=== PATIENT | female | born 1945 | race Caucasian/White ===

== ENCOUNTER 2018-04-01 09:15 | Day surgery (SDC) | payer MEDICARE ==
[2018-04-01] MEDS: PROPARACAINE 0.5% OPHTH SOL 15ML OS (09:45)
[2018-04-01] MEDS: PHENYLEPHRINE 2.5% OPHTH SOL 2ML OS (09:45)
[2018-04-01] MEDS: TROPICAMIDE 1% OPHTH SOLN 2ML OS (09:50)
[2018-04-01] MEDS: OFLOXACIN 0.3 % (OCUFLOX) OPTH SOL 5ML OS (10:05)
[2018-04-01] MEDS: LIDOCAINE 0.75%/EPINEPHRINE 0.025% IN BSS 1ML SYR INTRACAMERAL (OR ONLY) As Ordered (10:55)
[2018-04-01] MEDS: BALANCED SALT IRRIGATION SOLUTION 500ML BAG (FOR OR EYE MACHINE) As Ordered (10:57)
[2018-04-01] MEDS: POVIDONE-IODINE 5% OPHTH PREP SOL 30ML As Ordered (11:01)
[2018-04-01] MEDS: DUOVISC (0.50ML VISCOAT/0.55ML PROVISC) OPHTH KIT As Ordered (11:01)
[2018-04-01] MEDS ORDERED: ONDANSETRON 4MG/2ML VIAL (J2405) As Ordered (11:03)
[2018-04-01] MEDS ORDERED: MIDAZOLAM INJ 2 MG/2 ML VIAL (J2250) As Ordered (11:03)
[2018-04-01] MEDS ORDERED: fentaNYL 100 MCG/2 ML INJECTION (J3010) As Ordered (11:03)
== END 2018-04-01 12:05 | disposition home or self-care (01) ==
LOC: M SDC 09:15
DX: H25.12 Age-related nuclear cataract, left eye (principal); E78.5 Hyperlipidemia, unspecified; L40.50 Arthropathic psoriasis, unspecified; I25.2 Old myocardial infarction; R01.1 Cardiac murmur, unspecified; E04.1 Nontoxic single thyroid nodule; K21.9 Gastro-esophageal reflux disease without esophagitis; F41.9 Anxiety disorder, unspecified; J44.9 Chronic obstructive pulmonary disease, unspecified; R06.02 Shortness of breath; Z88.0 Allergy status to penicillin; Z91.048 Other nonmedicinal substance allergy status; Z99.81 Dependence on supplemental oxygen; Z87.891 Personal history of nicotine dependence; Z90.710 Acquired absence of both cervix and uterus
CPT/HCPCS: 66984

== ENCOUNTER 2018-04-15 06:07 | Day surgery (SDC) | payer MEDICARE ==
[2018-04-15] MEDS ORDERED: fentaNYL 100 MCG/2 ML INJECTION (J3010) As Ordered (07:09)
[2018-04-15] MEDS ORDERED: MIDAZOLAM INJ 2 MG/2 ML VIAL (J2250) As Ordered (07:10)
[2018-04-15] MEDS: OFLOXACIN 0.3 % (OCUFLOX) OPTH SOL 5ML OD (07:15)
[2018-04-15] MEDS: PROPARACAINE 0.5% OPHTH SOL 15ML OD (07:15)
[2018-04-15] MEDS: TROPICAMIDE 1% OPHTH SOLN 2ML OD (07:15)
[2018-04-15] MEDS: PHENYLEPHRINE 2.5% OPHTH SOL 2ML OD (07:15)
[2018-04-15] MEDS: LIDOCAINE 0.75%/EPINEPHRINE 0.025% IN BSS 1ML SYR INTRACAMERAL (OR ONLY) As Ordered (08:04)
[2018-04-15] MEDS: CEFUROXIME 1MG/0.1ML INTRACAMERAL INJ As Ordered (08:09)
[2018-04-15] MEDS: BALANCED SALT IRRIGATION SOLUTION 500ML BAG (FOR OR EYE MACHINE) As Ordered (08:09)
[2018-04-15] MEDS: DUOVISC (0.50ML VISCOAT/0.55ML PROVISC) OPHTH KIT As Ordered (08:13)
[2018-04-15] MEDS: POVIDONE-IODINE 5% OPHTH PREP SOL 30ML As Ordered (08:29)
== END 2018-04-15 09:05 | disposition home or self-care (01) ==
LOC: M SDC 06:07
DX: H25.11 Age-related nuclear cataract, right eye (principal); E78.5 Hyperlipidemia, unspecified; I25.2 Old myocardial infarction; R01.1 Cardiac murmur, unspecified; E04.1 Nontoxic single thyroid nodule; L40.50 Arthropathic psoriasis, unspecified; L40.9 Psoriasis, unspecified; F41.9 Anxiety disorder, unspecified; J44.9 Chronic obstructive pulmonary disease, unspecified; R06.02 Shortness of breath; Z88.0 Allergy status to penicillin; Z91.048 Other nonmedicinal substance allergy status; Z79.899 Other long term (current) drug therapy; Z90.710 Acquired absence of both cervix and uterus
CPT/HCPCS: 66984

== ENCOUNTER 2018-08-11 15:17 | Emergency (ER) | payer MEDICARE ==
[2018-08-11] MEDS: NS 500 ML IV (15:30)
[2018-08-11 15:56] LABS: BEDSIDE GLUCOSE 97 MG/DL (83-110)
[2018-08-11 16:30] LABS: VENOUS BASE EXCESS 7.1 (-2.0-2.0); VENOUS HCO3 34.9 MEQ/L (23.0-27.0); VENOUS O2 SATURATION 72.1 % (60.0-80.0); VENOUS PARTIAL PRESSURE CO2 64.1 mmHg (38.0-50.0); VENOUS PARTIAL PRESSURE O2 41.3 mmHg (30.0-50.0); VENOUS PH 7.354 UNITS (7.330-7.430); VENOUS STANDARD HCO3 30.3 MEQ/L; VENOUS TOTAL CO2 36.9 MEQ/L (24.0-28.0)
[2018-08-11 16:36] LABS: BASO # 0.1 10^3/uL (0.0-0.2); BASO % 0.9 % (0.0-1.0); EOS # 0.2 10^3/uL (0.0-0.50); EOS % 2.6 % (0.0-3.0); HEMATOCRIT 38.6 % (36.0-47.0); HEMOGLOBIN 12.8 g/dl (12.0-15.5); IMMATURE GRANULOCYTE % 0.4 % (0-3.0); LYMPH # 1.6 10^3/uL (1.5-4.5); LYMPH % 20.4 % (24.0-44.0); MEAN CORPUSCULAR HEMOGLOBIN 33.2 pg (27.0-33.0); MEAN CORPUSCULAR HGB CONC 33.2 g/dl (32.0-36.5); MONO # 0.7 10^3/uL (0.0-0.8); MONO % 9.1 % (0.0-5.0); NEUTROPHILS # 5.2 10^3/uL (1.8-7.7); NEUTROPHILS % 66.6 % (36.0-66.0); PLATELET COUNT, AUTOMATED 300 10^3/uL (150-450); RED BLOOD COUNT 3.86 10^6/uL (4.00-5.40); RED CELL DISTRIBUTION WIDTH 12.9 % (11.5-14.5); WHITE BLOOD COUNT 7.8 10^3/uL (4.0-10.0)
[2018-08-11 17:08] LABS: AMMONIA < 10 uMOL/L (<32)
[2018-08-11 17:16] LABS: OSMOLALITY SERUM 375 MOSM/KG (280-301)
[2018-08-11 17:32] LABS: LACTIC ACID SEPSIS PROTOCOL 2.5 MMOL/L (0.4-2.0)
[2018-08-11 17:35] LABS: ACETAMINOPHEN LEVEL < 2.0 UG/ML (10.0-30.0); ALBUMIN 3.5 GM/DL (3.2-5.2); ALBUMIN/GLOBULIN RATIO 0.92 (1.00-1.93); ALKALINE PHOSPHATASE 73 U/L (45-117); ALT/SGPT 36 U/L (12-78); ANION GAP 8 MEQ/L (8-16); AST/SGOT 32 U/L (7-37); BILIRUBIN,DIRECT < 0.1 MG/DL (0.0-0.2); BILIRUBIN,TOTAL 0.1 MG/DL (0.2-1.0); BLOOD UREA NITROGEN 14 MG/DL (7-18); CALCIUM LEVEL 8.4 MG/DL (8.8-10.2); CARBON DIOXIDE LEVEL 33 MEQ/L (21-32); CHLORIDE LEVEL 102 MEQ/L (98-107); CPK CREATINE PHOSPHOKINASE 185 U/L (26-192); CREATININE FOR GFR 0.65 MG/DL (0.55-1.30); ETHYL ALCOHOL (ETHANOL) 0.299 % (0.000-0.010); GLOMERULAR FILTRATION RATE > 60.0 (>39); GLUCOSE, FASTING 82 MG/DL (70-100); MB/CK RELATIVE INDEX 3.24 (< OR =4); SALICYLATE LEVEL < 1.7 MG/DL (5.0-30.0); SODIUM LEVEL 143 MEQ/L (136-145); THYROID STIMULATING HORMONE 0.302 uIU/ML (0.358-3.740); TOTAL PROTEIN 7.3 GM/DL (6.4-8.2); TROPONIN I < 0.02 NG/ML (< 0.10)
[2018-08-11 18:42] LABS: FREE T4 1.01 NG/DL (0.76-1.46)
== END 2018-08-11 19:14 | disposition home or self-care (01) ==
LOC: M ED 15:17
DX: G93.41 Metabolic encephalopathy (principal); F10.229 Alcohol dependence with intoxication, unspecified; Y90.1 Blood alcohol level of 20-39 mg/100 ml; I45.10 Unspecified right bundle-branch block; J44.9 Chronic obstructive pulmonary disease, unspecified; I73.9 Peripheral vascular disease, unspecified; Z99.81 Dependence on supplemental oxygen; Z79.899 Other long term (current) drug therapy; Z88.0 Allergy status to penicillin; Z88.8 Allergy status to other drugs, medicaments and biological substances; Z87.891 Personal history of nicotine dependence
CPT/HCPCS: 71045

== ENCOUNTER → 2020-04-05 | Outpatient (REF) | payer MEDICARE, OTHER ==
[~2020-04-05] MED LIST: ADVA115A INH; CALCIUM W/D PO; DULC5TAB PO; FURO40TA2 PO; HALOBETASOL TOP; KETO10TAB PO; LIPI20TA PO; LORA-243 PO; MAGN400C2 PO; NIASPAN ER PO; OMEGA 3 PO; PRED20TAB PO; RANI-397 PO; SERT50TA29 PO; SING10TA31 OR; TRILIPIX PO; TYLE325T5 PO; TYLENOL ARTHIRITIS PO; VICO5TAB OR; VITA400C OR; VITA500T OR; [UNRECOGNIZED DRUG - OTHER] INH; [UNRECOGNIZED DRUG - OTHER] INH; [UNRECOGNIZED DRUG - OTHER] PO; [UNRECOGNIZED DRUG - OTHER] TOP; [UNRECOGNIZED DRUG - OTHER] TOP; aquaphor TOP; astepro
== END ==
LOC: M LAB REF 16:26
PROVIDERS: ATTEND Internal Medicine
DX: R25.1 Tremor, unspecified (principal)

== ENCOUNTER → 2020-11-08 | Outpatient (REF) | payer MEDICARE, OTHER | LOC: M LAB REF 16:15 | PROVIDERS: ATTEND Internal Medicine | DX: M79.671 Pain in right foot (principal) ==

== ENCOUNTER → 2021-08-29 | Outpatient (CLI) | payer MEDICARE ==
--- NOTE | 2021-08-29 12:51 | REP ---
INDICATION: RT LEG SWELLING COMPARISON: None. TECHNIQUE: Nazario scale and color Doppler evaluation using linear high frequency transducer. FINDINGS: Ultrasound examination of the right lower extremity deep venous structures from the common femoral vein through the popliteal vein demonstrates normal compressibility, flow and wave patterns in response to respiration and augmentation. Evaluation of the calf veins demonstrates normal compressibility to the posterior tibial and peroneal veins. There is no evidence for deep venous thrombosis. Contralateral CFV is patent and normal. IMPRESSION: No evidence for deep venous thrombosis. <Electronically signed by Maxwell Elliott > 08/29/21 0002
== END ==
LOC: M RAD 12:09
PROVIDERS: ATTEND Internal Medicine
DX: R22.41 Localized swelling, mass and lump, right lower limb (principal)

== ENCOUNTER → 2021-10-10 | Outpatient (CLI) | payer MEDICARE | LOC: M RAD 12:47 | PROVIDERS: ATTEND Surgery | DX: I87.2 Venous insufficiency (chronic) (peripheral) (principal) ==

== ENCOUNTER 2021-10-19 09:58 | Inpatient (IN) | payer MEDICARE ==
[~2021-10-19] VITALS: Ht 162.6 cm; Wt 69.6 kg
[2021-10-19 10:35] LABS: VENOUS BASE EXCESS 11.3 (-2.0-2.0); VENOUS HCO3 39.5 MEQ/L (23.0-27.0); VENOUS PARTIAL PRESSURE CO2 69.3 mmHg (38.0-50.0); VENOUS PH 7.374 UNITS (7.330-7.430); VENOUS STANDARD HCO3 33.8 MEQ/L; VENOUS TOTAL CO2 41.7 MEQ/L (24.0-28.0)
[2021-10-19 10:39] LABS: BASO # 0.1 10^3/uL (0.0-0.2); BASO % 0.5 % (0.0-1.0); EOS # 0.2 10^3/uL (0.0-0.5); EOS % 1.3 % (0.0-3.0); HEMATOCRIT 38.2 % (36.0-47.0); HEMOGLOBIN 12.3 g/dl (12.0-15.5); LYMPH % 8.2 % (24.0-44.0); MEAN CORPUSCULAR HEMOGLOBIN 32.3 pg (27.0-33.0); MEAN CORPUSCULAR HGB CONC 32.2 g/dl (32.0-36.5); MEAN CORPUSCULAR VOLUME 100.3 fl (80.0-96.0); MONO # 0.9 10^3/uL (0.0-0.8); MONO % 6.8 % (2.0-8.0); NEUTROPHILS # 10.5 10^3/uL (1.5-8.5); NEUTROPHILS % 82.8 % (36.0-66.0); PLATELET COUNT, AUTOMATED 226 10^3/uL (150-450); RED BLOOD COUNT 3.81 10^6/uL (4.00-5.40); WHITE BLOOD COUNT 12.7 10^3/uL (4.0-10.0)
[2021-10-19] MEDS: METOPROLOL 5 MG/5 ML VIAL IV SCH ×3 (11:39→12:06)
[2021-10-19 11:48] LABS: ALBUMIN 3.7 GM/DL (3.2-5.2); ALT/SGPT 19 U/L (12-78); BILIRUBIN,DIRECT 0.2 MG/DL (0.0-0.2); BILIRUBIN,TOTAL 0.7 MG/DL (0.2-1.0); BLOOD UREA NITROGEN 20 MG/DL (7-18); CARBON DIOXIDE LEVEL 37 MEQ/L (21-32); CHLORIDE LEVEL 93 MEQ/L (98-107); CREATININE FOR GFR 0.83 MG/DL (0.55-1.30); GLOMERULAR FILTRATION RATE > 60.0 (>39); GLUCOSE, FASTING 97 MG/DL (70-100); MAGNESIUM LEVEL 2.1 MG/DL (1.8-2.4); NT-PRO BNP 2386 PG/ML (<450); POTASSIUM SERUM 3.6 MEQ/L (3.5-5.1); SODIUM LEVEL 139 MEQ/L (136-145); THYROID STIMULATING HORMONE 0.441 uIU/ML (0.358-3.740); TOTAL PROTEIN 7.3 GM/DL (6.4-8.2)
[2021-10-19] MEDS: MIDODRINE 5 MG TAB PO SCH ×2 (12:00→15:25)
[2021-10-19] MEDS ORDERED: METOPROLOL TART 25 MG TABLET PO ONE ×2 (12:05→15:15)
[2021-10-19] MEDS ORDERED: ACETAMINOPHEN 500 MG TAB PO ONE (12:05)
[2021-10-19] MEDS ORDERED: NS 1,000 ML IV SCH (12:20)
[2021-10-19] MEDS ORDERED: ALBU8.5H INH (12:48)
[2021-10-19] MEDS ORDERED: MAGN400T35 PO (12:49)
[2021-10-19] MEDS ORDERED: ADVA115A INH (12:49)
[2021-10-19] MEDS ORDERED: ATOR40TA75 PO (12:49)
[2021-10-19] MEDS ORDERED: LORA-622 PO (12:49)
[2021-10-19] MEDS ORDERED: CALC600T61 PO (12:49)
[2021-10-19] MEDS ORDERED: ASCO500T PO (12:49)
[2021-10-19] MEDS ORDERED: TORS20TA2 PO (12:49)
[2021-10-19] MEDS ORDERED: OMEG12004 PO (12:49)
[2021-10-19] MEDS ORDERED: VITMTA PO (12:49)
[2021-10-19 12:50] LABS: C REACTIVE PROTEIN QUANTITATIV 3.14 MG/DL (0.00-0.30); FERRITIN 282 NG/ML (8-252); INR 0.97; LDH LACTATE DEHYDROGENASE 177 U/L (84-246); PROTHROMBIN TIME 13.3 SECONDS (12.7-14.5)
[2021-10-19 12:51] LABS: PARTIAL THROMBOPLASTIN TIME 26.5 SECONDS (25.9-37.0)
[2021-10-19] MEDS ORDERED: LEVALBUTEROL 1.25 MG/0.5 ML CONCENTRATE NEB INH PRN (12:55)
[2021-10-19] MEDS ORDERED: CALC-234 PO (13:08)
[2021-10-19] MEDS ORDERED: HOME MED LIST COMPLETE! XX SCH (13:10)
[2021-10-19 13:25] LABS: ETHYL ALCOHOL (ETHANOL) < 0.003 % (0.000-0.010)
[2021-10-19 14:45] VITALS: BP 93/68
[2021-10-19] MEDS: ASCORBIC ACID 500 MG TAB PO SCH (15:25)
[2021-10-19] MEDS: methylPREDNISolone 125MG 2ML VIAL IV SCH ×2 (15:26→19:58)
[2021-10-19] MEDS: DIGOXIN INJ 0.5 MG/2 ML AMP (J1160) IV SCH ×2 (15:32→19:58)
[2021-10-19 16:00] VITALS: BP 92/65
[2021-10-19] MEDS ORDERED: NS 500 ML IV ONE ×3 (16:00→18:30)
[2021-10-19 16:25] VITALS: BP 91/67
[2021-10-19] MEDS ORDERED: DIGOXIN INJ 0.5 MG/2 ML AMP (J1160) IV STA (16:32)
[2021-10-19 17:31] VITALS: BP 112/80
[2021-10-19] MEDS: METOPROLOL TART 25 MG TABLET PO SCH ×4 (18:00→23:32)
[2021-10-19 18:05] VITALS: BP 98/66
[2021-10-19] MEDS: DOXYCYCLINE HYCLATE 100MG TABLET PO SCH (18:17)
[2021-10-19] MEDS: LEVALBUTEROL 1.25 MG/0.5 ML CONCENTRATE NEB INH SCH ×2 (18:27→19:40)
[2021-10-19 18:29] LABS: CK-MB VALUE MASS < 1.0 NG/ML (<3.6); CPK CREATINE PHOSPHOKINASE 37 U/L (26-192)
[2021-10-19] MEDS ORDERED: FLECAINIDE 50MG TABLET PO ONE (19:00)
[2021-10-19] MEDS: ADVAIR HFA 115/21MCG INHALER INH SCH (19:45)
[2021-10-19] MEDS: ATORVASTATIN 20 MG TAB PO SCH (19:57)
[2021-10-19] MEDS: APIXABAN 5 MG TAB (ELIQUIS) PO SCH ×2 (19:57→20:02)
[2021-10-19] MEDS: MAGNESIUM OXIDE 400MG TAB (MAG-OX) PO SCH (19:57)
[2021-10-19 20:11] VITALS: BP 98/68
[2021-10-19] MEDS ORDERED: FLECAINIDE 50MG TABLET PO SCH (21:00)
[2021-10-20] VITALS (8 sets, daily range): BP systolic 91–131; BP diastolic 61–81; O2SAT 96
[2021-10-20 00:57] LABS: CK-MB VALUE MASS < 1.0 NG/ML (<3.6); CPK CREATINE PHOSPHOKINASE 40 U/L (26-192)
[2021-10-20] MEDS: DIGOXIN INJ 0.5 MG/2 ML AMP (J1160) IV SCH ×3 (01:29→20:51)
[2021-10-20] MEDS: methylPREDNISolone 125MG 2ML VIAL IV SCH ×2 (02:37→08:05)
[2021-10-20 03:48] LABS: BASO % 0.1 % (0.0-1.0); HEMATOCRIT 32.4 % (36.0-47.0); HEMOGLOBIN 10.5 g/dl (12.0-15.5); LYMPH # 0.5 10^3/uL (1.5-5.0); LYMPH % 4.4 % (24.0-44.0); MEAN CORPUSCULAR HEMOGLOBIN 32.2 pg (27.0-33.0); MEAN CORPUSCULAR HGB CONC 32.4 g/dl (32.0-36.5); MEAN CORPUSCULAR VOLUME 99.4 fl (80.0-96.0); MONO # 0.5 10^3/uL (0.0-0.8); MONO % 4.5 % (2.0-8.0); NEUTROPHILS # 10.1 10^3/uL (1.5-8.5); NEUTROPHILS % 90.5 % (36.0-66.0); PLATELET COUNT, AUTOMATED 196 10^3/uL (150-450); RED BLOOD COUNT 3.26 10^6/uL (4.00-5.40); WHITE BLOOD COUNT 11.2 10^3/uL (4.0-10.0)
[2021-10-20] MEDS: LEVALBUTEROL 1.25 MG/0.5 ML CONCENTRATE NEB INH SCH ×7 (04:00→23:16)
[2021-10-20 04:35] LABS: BLOOD UREA NITROGEN 24 MG/DL (7-18); CALCIUM LEVEL 8.4 MG/DL (8.8-10.2); CARBON DIOXIDE LEVEL 31 MEQ/L (21-32); CHLORIDE LEVEL 98 MEQ/L (98-107); CREATININE FOR GFR 0.91 MG/DL (0.55-1.30); DIGOXIN LEVEL 1.2 NG/ML (0.5-2.0); GLOMERULAR FILTRATION RATE > 60.0 (>39); GLUCOSE, FASTING 182 MG/DL (70-100); MAGNESIUM LEVEL 2.1 MG/DL (1.8-2.4); POTASSIUM SERUM 3.9 MEQ/L (3.5-5.1); SODIUM LEVEL 137 MEQ/L (136-145)
[2021-10-20] MEDS: METOPROLOL TART 25 MG TABLET PO SCH (05:46)
[2021-10-20] MEDS: DOXYCYCLINE HYCLATE 100MG TABLET PO SCH ×2 (05:47→16:47)
[2021-10-20] MEDS ORDERED: DIGOXIN INJ 0.5 MG/2 ML AMP (J1160) IV STA ×2 (07:08→09:47)
[2021-10-20] MEDS ORDERED: FLECAINIDE 50MG TABLET PO ONE (07:30)
[2021-10-20] MEDS ORDERED: NS 500 ML IV ONE (08:00)
[2021-10-20] MEDS: APIXABAN 5 MG TAB (ELIQUIS) PO SCH ×2 (08:02→20:57)
[2021-10-20] MEDS: ASCORBIC ACID 500 MG TAB PO SCH (08:03)
[2021-10-20] MEDS: MIDODRINE 5 MG TAB PO SCH ×4 (08:03→16:47)
[2021-10-20] MEDS: MAGNESIUM OXIDE 400MG TAB (MAG-OX) PO SCH ×2 (08:04→20:57)
[2021-10-20] MEDS: ADVAIR HFA 115/21MCG INHALER INH SCH ×2 (08:25→20:00)
[2021-10-20] MEDS ORDERED: MULTIVITAMINS/MINERALS THERAP 1 TAB PO SCH (09:00)
[2021-10-20] MEDS ORDERED: bisoproloL fumarate 5 MG TAB PO ONE ×2 (09:50→18:00)
[2021-10-20] MEDS ORDERED: MORPHINE 4 MG/ML 1ML VIAL/SYRINGE (J2270) IV ONE (17:15)
[2021-10-20] MEDS: ATORVASTATIN 20 MG TAB PO SCH (20:57)
[2021-10-20] MEDS ORDERED: bisoproloL fumarate 10 MG TAB PO SCH (21:00)
[2021-10-20] MEDS ORDERED: bisoproloL fumarate 5 MG TAB PO SCH (21:00)
[2021-10-21] VITALS (8 sets, daily range): BP systolic 102–146; BP diastolic 63–85
[2021-10-21] MEDS: RAMELTEON 8 MG TAB (ROZEREM) PO PRN ×2 (01:55→20:15)
[2021-10-21] MEDS ORDERED: LORazepam 2 MG/ML VIAL IV ONE (03:10)
[2021-10-21] MEDS: LEVALBUTEROL 1.25 MG/0.5 ML CONCENTRATE NEB INH SCH ×6 (04:00→23:44)
[2021-10-21] MEDS: DOXYCYCLINE HYCLATE 100MG TABLET PO SCH ×2 (06:13→18:18)
[2021-10-21] MEDS: ADVAIR HFA 115/21MCG INHALER INH SCH ×2 (07:33→19:46)
[2021-10-21] MEDS ORDERED: LORazepam 2 MG TAB PO PRN (07:45)
[2021-10-21] MEDS ORDERED: DIGOXIN 0.125 MG TAB PO STA (07:45)
[2021-10-21] MEDS ORDERED: bisoproloL fumarate 5 MG TAB PO ONE (08:00)
[2021-10-21] MEDS: FOLIC ACID 1 MG TAB PO SCH (08:37)
[2021-10-21] MEDS: ASCORBIC ACID 500 MG TAB PO SCH (08:37)
[2021-10-21] MEDS: MAGNESIUM OXIDE 400MG TAB (MAG-OX) PO SCH ×2 (08:37→20:15)
[2021-10-21] MEDS: predniSONE 20 MG TAB PO SCH (08:37)
[2021-10-21] MEDS: MULTIVITAMINS/MINERALS THERAP 1 TAB PO SCH (08:37)
[2021-10-21] MEDS: APIXABAN 5 MG TAB (ELIQUIS) PO SCH ×2 (08:37→20:15)
[2021-10-21] MEDS: MIDODRINE 5 MG TAB PO SCH ×3 (08:47→15:44)
[2021-10-21] MEDS: THIAMINE 100 MG TAB PO SCH ×2 (08:47→20:15)
[2021-10-21 09:13] LABS: BLOOD UREA NITROGEN 26 MG/DL (7-18); CALCIUM LEVEL 9.1 MG/DL (8.8-10.2); CARBON DIOXIDE LEVEL 31 MEQ/L (21-32); CHLORIDE LEVEL 100 MEQ/L (98-107); CREATININE FOR GFR 0.92 MG/DL (0.55-1.30); DIGOXIN LEVEL 2.2 NG/ML (0.5-2.0); GLOMERULAR FILTRATION RATE > 60.0 (>39); GLUCOSE, FASTING 127 MG/DL (70-100); MAGNESIUM LEVEL 2.4 MG/DL (1.8-2.4); POTASSIUM SERUM 4.3 MEQ/L (3.5-5.1); SODIUM LEVEL 139 MEQ/L (136-145)
[2021-10-21] MEDS ORDERED: niCARdipine IV 40 MG in IV 1 EA IV SCH (13:45)
[2021-10-21] MEDS: diltiaZEM 125 MG in NS 100 ML IV SCH ×2 (15:56→20:16)
[2021-10-21] MEDS: ATORVASTATIN 20 MG TAB PO SCH (20:15)
[2021-10-22] VITALS (8 sets, daily range): BP systolic 104–134; BP diastolic 55–80
[2021-10-22] MEDS: LEVALBUTEROL 1.25 MG/0.5 ML CONCENTRATE NEB INH SCH ×2 (03:44→16:00)
[2021-10-22 04:46] LABS: BASO % 0.1 % (0.0-1.0); HEMATOCRIT 31.5 % (36.0-47.0); LYMPH % 8.9 % (24.0-44.0); MEAN CORPUSCULAR HEMOGLOBIN 32.5 pg (27.0-33.0); MEAN CORPUSCULAR HGB CONC 31.7 g/dl (32.0-36.5); MEAN CORPUSCULAR VOLUME 102.3 fl (80.0-96.0); MONO # 1.1 10^3/uL (0.0-0.8); MONO % 9.4 % (2.0-8.0); NEUTROPHILS # 9.1 10^3/uL (1.5-8.5); NEUTROPHILS % 81.1 % (36.0-66.0); PLATELET COUNT, AUTOMATED 199 10^3/uL (150-450); RED BLOOD COUNT 3.08 10^6/uL (4.00-5.40); WHITE BLOOD COUNT 11.2 10^3/uL (4.0-10.0)
[2021-10-22 05:29] LABS: BLOOD UREA NITROGEN 20 MG/DL (7-18); CALCIUM LEVEL 8.8 MG/DL (8.8-10.2); CARBON DIOXIDE LEVEL 35 MEQ/L (21-32); CHLORIDE LEVEL 101 MEQ/L (98-107); CREATININE FOR GFR 0.67 MG/DL (0.55-1.30); DIGOXIN LEVEL 2.2 NG/ML (0.5-2.0); GLOMERULAR FILTRATION RATE > 60.0 (>39); GLUCOSE, FASTING 120 MG/DL (70-100); MAGNESIUM LEVEL 2.4 MG/DL (1.8-2.4); POTASSIUM SERUM 3.9 MEQ/L (3.5-5.1); SODIUM LEVEL 141 MEQ/L (136-145)
[2021-10-22] MEDS: DOXYCYCLINE HYCLATE 100MG TABLET PO SCH ×2 (06:27→18:22)
[2021-10-22] MEDS ORDERED: LEVALBUTEROL 1.25 MG/0.5 ML CONCENTRATE NEB INH SCH (08:00)
[2021-10-22] MEDS: ADVAIR HFA 115/21MCG INHALER INH SCH ×2 (08:09→19:52)
[2021-10-22] MEDS: APIXABAN 5 MG TAB (ELIQUIS) PO SCH ×2 (09:47→20:20)
[2021-10-22] MEDS: MIDODRINE 5 MG TAB PO SCH ×2 (09:47→12:00)
[2021-10-22] MEDS: MULTIVITAMINS/MINERALS THERAP 1 TAB PO SCH (09:47)
[2021-10-22] MEDS: FOLIC ACID 1 MG TAB PO SCH (09:47)
[2021-10-22] MEDS: THIAMINE 100 MG TAB PO SCH ×2 (09:48→20:20)
[2021-10-22] MEDS: ASCORBIC ACID 500 MG TAB PO SCH (09:48)
[2021-10-22] MEDS: MAGNESIUM OXIDE 400MG TAB (MAG-OX) PO SCH ×2 (09:48→20:19)
[2021-10-22] MEDS: predniSONE 20 MG TAB PO SCH (09:49)
[2021-10-22] MEDS ORDERED: DIGOXIN 0.125 MG TAB PO ONE (13:20)
[2021-10-22] MEDS: bisoproloL fumarate 5 MG TAB PO SCH ×3 (14:51→23:49)
[2021-10-22] MEDS: RAMELTEON 8 MG TAB (ROZEREM) PO PRN (20:19)
[2021-10-22] MEDS: ATORVASTATIN 20 MG TAB PO SCH (20:20)
[2021-10-23] VITALS (12 sets, daily range): BP systolic 88–144; BP diastolic 64–97
[2021-10-23 05:07] LABS: HEMATOCRIT 32.9 % (36.0-47.0); HEMOGLOBIN 10.3 g/dl (12.0-15.5); LYMPH # 0.8 10^3/uL (1.5-5.0); LYMPH % 8.2 % (24.0-44.0); MEAN CORPUSCULAR HEMOGLOBIN 31.9 pg (27.0-33.0); MEAN CORPUSCULAR HGB CONC 31.3 g/dl (32.0-36.5); MEAN CORPUSCULAR VOLUME 101.9 fl (80.0-96.0); MONO # 0.9 10^3/uL (0.0-0.8); MONO % 9.6 % (2.0-8.0); NEUTROPHILS # 7.6 10^3/uL (1.5-8.5); NEUTROPHILS % 81.4 % (36.0-66.0); PLATELET COUNT, AUTOMATED 228 10^3/uL (150-450); RED BLOOD COUNT 3.23 10^6/uL (4.00-5.40); WHITE BLOOD COUNT 9.3 10^3/uL (4.0-10.0)
[2021-10-23 05:30] LABS: BLOOD UREA NITROGEN 19 MG/DL (7-18); CARBON DIOXIDE LEVEL 34 MEQ/L (21-32); CHLORIDE LEVEL 101 MEQ/L (98-107); CREATININE FOR GFR 0.75 MG/DL (0.55-1.30); GLOMERULAR FILTRATION RATE > 60.0 (>39); GLUCOSE, FASTING 122 MG/DL (70-100); MAGNESIUM LEVEL 2.4 MG/DL (1.8-2.4); POTASSIUM SERUM 4.3 MEQ/L (3.5-5.1); SODIUM LEVEL 136 MEQ/L (136-145)
[2021-10-23] MEDS: DOXYCYCLINE HYCLATE 100MG TABLET PO SCH ×2 (06:16→17:59)
[2021-10-23] MEDS: bisoproloL fumarate 5 MG TAB PO SCH ×4 (06:16→23:22)
[2021-10-23] MEDS: ADVAIR HFA 115/21MCG INHALER INH SCH ×2 (08:00→20:00)
[2021-10-23] MEDS: LEVALBUTEROL 1.25 MG/0.5 ML CONCENTRATE NEB INH SCH ×3 (08:00→15:18)
[2021-10-23] MEDS: predniSONE 10 MG TAB PO SCH (08:45)
[2021-10-23] MEDS: MULTIVITAMINS/MINERALS THERAP 1 TAB PO SCH (08:45)
[2021-10-23] MEDS: MAGNESIUM OXIDE 400MG TAB (MAG-OX) PO SCH ×2 (08:46→20:20)
[2021-10-23] MEDS: APIXABAN 5 MG TAB (ELIQUIS) PO SCH ×2 (08:46→20:21)
[2021-10-23] MEDS: THIAMINE 100 MG TAB PO SCH ×2 (08:46→20:20)
[2021-10-23] MEDS: FOLIC ACID 1 MG TAB PO SCH (08:46)
[2021-10-23] MEDS: ASCORBIC ACID 500 MG TAB PO SCH (08:46)
[2021-10-23] MEDS ORDERED: DIGOXIN 0.125 MG TAB PO SCH (09:00)
[2021-10-23] MEDS ORDERED: AMIODARONE HCL 150 MG in IV 1 EA IV STA ×2 (14:41→15:57)
[2021-10-23] MEDS: AMIODARONE 200 MG TAB (PACERONE) PO SCH ×2 (14:57→20:21)
[2021-10-23] MEDS: ATORVASTATIN 20 MG TAB PO SCH (20:20)
[2021-10-24] VITALS (12 sets, daily range): BP systolic 102–137; BP diastolic 72–86
[2021-10-24] MEDS: AMIODARONE 200 MG TAB (PACERONE) PO SCH ×4 (03:08→20:54)
[2021-10-24 05:05] LABS: EOS % 0.3 % (0.0-3.0); HEMATOCRIT 34.4 % (36.0-47.0); HEMOGLOBIN 10.9 g/dl (12.0-15.5); LYMPH # 1.3 10^3/uL (1.5-5.0); LYMPH % 16.1 % (24.0-44.0); MEAN CORPUSCULAR HEMOGLOBIN 31.9 pg (27.0-33.0); MEAN CORPUSCULAR HGB CONC 31.7 g/dl (32.0-36.5); MEAN CORPUSCULAR VOLUME 100.6 fl (80.0-96.0); MONO # 0.8 10^3/uL (0.0-0.8); MONO % 9.6 % (2.0-8.0); NEUTROPHILS # 5.8 10^3/uL (1.5-8.5); NEUTROPHILS % 73.6 % (36.0-66.0); PLATELET COUNT, AUTOMATED 206 10^3/uL (150-450); RED BLOOD COUNT 3.42 10^6/uL (4.00-5.40); WHITE BLOOD COUNT 7.9 10^3/uL (4.0-10.0)
[2021-10-24] MEDS: DOXYCYCLINE HYCLATE 100MG TABLET PO SCH (05:13)
[2021-10-24] MEDS: bisoproloL fumarate 5 MG TAB PO SCH ×3 (05:14→17:45)
[2021-10-24 05:37] LABS: BLOOD UREA NITROGEN 20 MG/DL (7-18); CALCIUM LEVEL 8.9 MG/DL (8.8-10.2); CARBON DIOXIDE LEVEL 35 MEQ/L (21-32); CHLORIDE LEVEL 102 MEQ/L (98-107); CREATININE FOR GFR 0.72 MG/DL (0.55-1.30); DIGOXIN LEVEL 1.7 NG/ML (0.5-2.0); GLOMERULAR FILTRATION RATE > 60.0 (>39); GLUCOSE, FASTING 102 MG/DL (70-100); MAGNESIUM LEVEL 2.2 MG/DL (1.8-2.4); POTASSIUM SERUM 4.3 MEQ/L (3.5-5.1); SODIUM LEVEL 139 MEQ/L (136-145)
[2021-10-24] MEDS: LEVALBUTEROL 1.25 MG/0.5 ML CONCENTRATE NEB INH SCH ×4 (08:00→23:56)
[2021-10-24] MEDS: ADVAIR HFA 115/21MCG INHALER INH SCH ×2 (08:14→20:14)
[2021-10-24] MEDS: predniSONE 10 MG TAB PO SCH (08:24)
[2021-10-24] MEDS: MULTIVITAMINS/MINERALS THERAP 1 TAB PO SCH (08:25)
[2021-10-24] MEDS: ASCORBIC ACID 500 MG TAB PO SCH (08:25)
[2021-10-24] MEDS: FOLIC ACID 1 MG TAB PO SCH (08:26)
[2021-10-24] MEDS: MAGNESIUM OXIDE 400MG TAB (MAG-OX) PO SCH ×2 (08:26→20:54)
[2021-10-24] MEDS: APIXABAN 5 MG TAB (ELIQUIS) PO SCH ×2 (08:26→20:54)
[2021-10-24] MEDS ORDERED: AMIODARONE HCL 150 MG in IV 1 EA IV STA ×2 (15:57→17:06)
[2021-10-24] MEDS: ATORVASTATIN 20 MG TAB PO SCH (20:54)
[2021-10-25] VITALS (9 sets, daily range): BP systolic 106–138; BP diastolic 73–98
[2021-10-25] MEDS: bisoproloL fumarate 5 MG TAB PO SCH ×5 (00:17→23:50)
[2021-10-25] MEDS: AMIODARONE 200 MG TAB (PACERONE) PO SCH ×4 (03:21→21:18)
[2021-10-25 04:46] LABS: EOS % 0.5 % (0.0-3.0); HEMATOCRIT 34.3 % (36.0-47.0); HEMOGLOBIN 11.1 g/dl (12.0-15.5); LYMPH # 1.2 10^3/uL (1.5-5.0); LYMPH % 18.9 % (24.0-44.0); MEAN CORPUSCULAR HGB CONC 32.4 g/dl (32.0-36.5); MEAN CORPUSCULAR VOLUME 98.8 fl (80.0-96.0); MONO # 0.7 10^3/uL (0.0-0.8); MONO % 10.4 % (2.0-8.0); NEUTROPHILS # 4.4 10^3/uL (1.5-8.5); PLATELET COUNT, AUTOMATED 217 10^3/uL (150-450); RED BLOOD COUNT 3.47 10^6/uL (4.00-5.40); WHITE BLOOD COUNT 6.2 10^3/uL (4.0-10.0)
[2021-10-25 05:12] LABS: BLOOD UREA NITROGEN 19 MG/DL (7-18); CALCIUM LEVEL 8.8 MG/DL (8.8-10.2); CARBON DIOXIDE LEVEL 36 MEQ/L (21-32); CHLORIDE LEVEL 100 MEQ/L (98-107); CREATININE FOR GFR 0.74 MG/DL (0.55-1.30); GLOMERULAR FILTRATION RATE > 60.0 (>39); GLUCOSE, FASTING 93 MG/DL (70-100); MAGNESIUM LEVEL 2.1 MG/DL (1.8-2.4); POTASSIUM SERUM 4.4 MEQ/L (3.5-5.1); SODIUM LEVEL 138 MEQ/L (136-145)
[2021-10-25] MEDS: LEVALBUTEROL 1.25 MG/0.5 ML CONCENTRATE NEB INH SCH ×3 (07:14→23:02)
[2021-10-25] MEDS: ADVAIR HFA 115/21MCG INHALER INH SCH ×2 (07:15→19:14)
[2021-10-25 07:47] LABS: BILIRUBIN, URINE MANUAL NEGATIVE (NEGATIVE); GLUCOSE, URINE (UA) MANUAL NEGATIVE (NEGATIVE); KETONE, URINE MANUAL NEGATIVE (NEGATIVE); UROBILINOGEN, URINE MANUAL NORMAL (NORMAL)
[2021-10-25 08:04] LABS: BACTERIA, URINE MOD AMOUNT; RBC, URINE NONE SEEN /hpf (0-3); SQUAMOUS EPITHELIAL CELL URINE SMALL AMOUNT /hpf (SMALL AMT)
[2021-10-25] MEDS: MULTIVITAMINS/MINERALS THERAP 1 TAB PO SCH (08:30)
[2021-10-25] MEDS: MAGNESIUM OXIDE 400MG TAB (MAG-OX) PO SCH ×2 (08:30→21:18)
[2021-10-25] MEDS: predniSONE 10 MG TAB PO SCH (08:30)
[2021-10-25] MEDS: ASCORBIC ACID 500 MG TAB PO SCH (08:31)
[2021-10-25] MEDS: APIXABAN 5 MG TAB (ELIQUIS) PO SCH ×2 (08:31→21:18)
[2021-10-25] MEDS: FOLIC ACID 1 MG TAB PO SCH (08:31)
[2021-10-25] MEDS ORDERED: AMIODARONE 150MG/3ML INJ (J0282) IVP STA (14:14)
[2021-10-25] MEDS ORDERED: AMIODARONE HCL 150 MG in IV 1 EA IV STA (14:43)
[2021-10-25] MEDS: ATORVASTATIN 20 MG TAB PO SCH (21:18)
[2021-10-26] VITALS (7 sets, daily range): BP systolic 109–130; BP diastolic 70–90
[2021-10-26] MEDS: AMIODARONE 200 MG TAB (PACERONE) PO SCH ×4 (03:21→21:07)
[2021-10-26 05:44] LABS: BASO % 0.1 % (0.0-1.0); EOS # 0.1 10^3/uL (0.0-0.5); EOS % 0.8 % (0.0-3.0); HEMATOCRIT 34.7 % (36.0-47.0); HEMOGLOBIN 10.9 g/dl (12.0-15.5); LYMPH # 1.3 10^3/uL (1.5-5.0); LYMPH % 17.8 % (24.0-44.0); MEAN CORPUSCULAR HGB CONC 31.4 g/dl (32.0-36.5); MEAN CORPUSCULAR VOLUME 98.6 fl (80.0-96.0); MONO # 0.8 10^3/uL (0.0-0.8); MONO % 11.6 % (2.0-8.0); NEUTROPHILS % 69.3 % (36.0-66.0); PLATELET COUNT, AUTOMATED 250 10^3/uL (150-450); RED BLOOD COUNT 3.52 10^6/uL (4.00-5.40); WHITE BLOOD COUNT 7.2 10^3/uL (4.0-10.0)
[2021-10-26] MEDS: bisoproloL fumarate 5 MG TAB PO SCH (06:11)
[2021-10-26 06:13] LABS: BLOOD UREA NITROGEN 19 MG/DL (7-18); CALCIUM LEVEL 8.8 MG/DL (8.8-10.2); CARBON DIOXIDE LEVEL 35 MEQ/L (21-32); CHLORIDE LEVEL 98 MEQ/L (98-107); CREATININE FOR GFR 0.73 MG/DL (0.55-1.30); GLOMERULAR FILTRATION RATE > 60.0 (>39); GLUCOSE, FASTING 109 MG/DL (70-100); MAGNESIUM LEVEL 2.2 MG/DL (1.8-2.4); POTASSIUM SERUM 4.1 MEQ/L (3.5-5.1); SODIUM LEVEL 136 MEQ/L (136-145)
[2021-10-26] MEDS ORDERED: bisoproloL fumarate 5 MG TAB PO ONE (07:55)
[2021-10-26] MEDS: LEVALBUTEROL 1.25 MG/0.5 ML CONCENTRATE NEB INH SCH ×3 (08:00→23:21)
[2021-10-26] MEDS: ADVAIR HFA 115/21MCG INHALER INH SCH ×2 (08:20→19:26)
[2021-10-26] MEDS: MAGNESIUM OXIDE 400MG TAB (MAG-OX) PO SCH ×2 (08:56→21:07)
[2021-10-26] MEDS: MULTIVITAMINS/MINERALS THERAP 1 TAB PO SCH (08:57)
[2021-10-26] MEDS: FOLIC ACID 1 MG TAB PO SCH (08:57)
[2021-10-26] MEDS: ASCORBIC ACID 500 MG TAB PO SCH (08:57)
[2021-10-26] MEDS: APIXABAN 5 MG TAB (ELIQUIS) PO SCH ×2 (08:57→21:06)
[2021-10-26] MEDS: predniSONE 10 MG TAB PO SCH (08:58)
[2021-10-26] MEDS ORDERED: guaiFENesin SYRUP 200MG 10ML UDC PO PRN (11:00)
[2021-10-26] MEDS: DIMETHICONE 2% OINTMENT(VANICREAM) 70GM TUBE TOP SCH (17:50)
[2021-10-26] MEDS: bisoproloL fumarate 10 MG TAB PO SCH (21:07)
[2021-10-26] MEDS: ATORVASTATIN 20 MG TAB PO SCH (21:07)
[2021-10-27] MEDS: AMIODARONE 200 MG TAB (PACERONE) PO SCH ×4 (02:55→19:49)
[2021-10-27 04:00] VITALS: BP 114/79
[2021-10-27] MEDS: LEVALBUTEROL 1.25 MG/0.5 ML CONCENTRATE NEB INH SCH ×2 (07:42→15:24)
[2021-10-27] MEDS: ADVAIR HFA 115/21MCG INHALER INH SCH ×2 (07:42→20:26)
[2021-10-27 08:45] VITALS: BP 106/74
[2021-10-27] MEDS: bisoproloL fumarate 10 MG TAB PO SCH ×2 (09:15→19:49)
[2021-10-27] MEDS: MULTIVITAMINS/MINERALS THERAP 1 TAB PO SCH (09:15)
[2021-10-27] MEDS: DIMETHICONE 2% OINTMENT(VANICREAM) 70GM TUBE TOP SCH (09:15)
[2021-10-27] MEDS: MAGNESIUM OXIDE 400MG TAB (MAG-OX) PO SCH ×2 (09:15→19:48)
[2021-10-27] MEDS: FOLIC ACID 1 MG TAB PO SCH (09:15)
[2021-10-27] MEDS: APIXABAN 5 MG TAB (ELIQUIS) PO SCH ×2 (09:16→19:48)
[2021-10-27] MEDS: ASCORBIC ACID 500 MG TAB PO SCH (09:16)
[2021-10-27] MEDS: predniSONE 10 MG TAB PO SCH (09:16)
[2021-10-27] MEDS ORDERED: AMIODARONE HCL 150 MG in IV 1 EA IV STA (09:34)
[2021-10-27 12:00] VITALS: BP 102/69
[2021-10-27 16:00] VITALS: BP 121/71
[2021-10-27] MEDS: ATORVASTATIN 20 MG TAB PO SCH (19:49)
[2021-10-27 20:15] VITALS: BP 110/73
[2021-10-28 00:04] VITALS: BP 100/62
[2021-10-28] MEDS: LEVALBUTEROL 1.25 MG/0.5 ML CONCENTRATE NEB INH SCH ×3 (01:19→15:21)
[2021-10-28 03:09] VITALS: BP 118/81
[2021-10-28] MEDS: AMIODARONE 200 MG TAB (PACERONE) PO SCH ×4 (03:09→20:32)
[2021-10-28 08:00] VITALS: BP 118/71
[2021-10-28] MEDS: ADVAIR HFA 115/21MCG INHALER INH SCH ×2 (08:07→19:38)
[2021-10-28] MEDS: predniSONE 10 MG TAB PO SCH (08:10)
[2021-10-28] MEDS: MULTIVITAMINS/MINERALS THERAP 1 TAB PO SCH (08:10)
[2021-10-28] MEDS: bisoproloL fumarate 10 MG TAB PO SCH ×2 (08:10→20:33)
[2021-10-28] MEDS: ASCORBIC ACID 500 MG TAB PO SCH (08:11)
[2021-10-28] MEDS: MAGNESIUM OXIDE 400MG TAB (MAG-OX) PO SCH ×2 (08:11→20:33)
[2021-10-28] MEDS: DIMETHICONE 2% OINTMENT(VANICREAM) 70GM TUBE TOP SCH (08:11)
[2021-10-28] MEDS: APIXABAN 5 MG TAB (ELIQUIS) PO SCH ×2 (08:11→20:32)
[2021-10-28] MEDS: FOLIC ACID 1 MG TAB PO SCH (08:11)
[2021-10-28 12:43] VITALS: BP 118/76
[2021-10-28 16:00] VITALS: BP 108/61
[2021-10-28 20:25] VITALS: BP 106/72
[2021-10-28] MEDS: ATORVASTATIN 20 MG TAB PO SCH (20:32)
[2021-10-29 00:15] VITALS: BP 95/65
[2021-10-29] MEDS: AMIODARONE 200 MG TAB (PACERONE) PO SCH ×2 (03:01→08:36)
[2021-10-29 04:35] VITALS: BP 100/67
[2021-10-29] MEDS: LEVALBUTEROL 1.25 MG/0.5 ML CONCENTRATE NEB INH SCH ×2 (07:32)
[2021-10-29] MEDS: ADVAIR HFA 115/21MCG INHALER INH SCH (07:32)
[2021-10-29] MEDS ORDERED: BISO10TA13 PO (08:02)
[2021-10-29] MEDS ORDERED: AMIO200T49 PO (08:02)
[2021-10-29] MEDS ORDERED: ELIQ5TAB PO (08:02)
[2021-10-29] MEDS ORDERED: PRED10TA2 PO (08:05)
[2021-10-29 08:06] VITALS: BP 113/67
[2021-10-29 08:36] VITALS: BP 113/67
[2021-10-29] MEDS: ASCORBIC ACID 500 MG TAB PO SCH (08:36)
[2021-10-29] MEDS: bisoproloL fumarate 10 MG TAB PO SCH (08:36)
[2021-10-29] MEDS: FOLIC ACID 1 MG TAB PO SCH (08:36)
[2021-10-29] MEDS: MULTIVITAMINS/MINERALS THERAP 1 TAB PO SCH (08:36)
[2021-10-29] MEDS: MAGNESIUM OXIDE 400MG TAB (MAG-OX) PO SCH (08:37)
[2021-10-29] MEDS: APIXABAN 5 MG TAB (ELIQUIS) PO SCH (08:37)
[2021-10-29] MEDS: DIMETHICONE 2% OINTMENT(VANICREAM) 70GM TUBE TOP SCH (08:37)
[2021-10-29] MEDS ORDERED: predniSONE 10 MG TAB PO SCH (09:00)
[2021-10-29] MEDS ORDERED: ACETAMINOPHEN 500 MG TAB PO ONE (12:35)
== END 2021-10-29 12:23 | disposition home health service (06) | DRG 309 ==
LOC: M ED 09:58 → EDBD 09:58 → M ED INP 12:51 → ENRESERV 13:55 → M PCU 14:48
PROVIDERS: ADMIT General Practice; ATTEND General Practice
DX: I48.92 Unspecified atrial flutter (principal); J96.11 Chronic respiratory failure with hypoxia; J44.1 Chronic obstructive pulmonary disease with (acute) exacerbation; L97.919 Non-pressure chronic ulcer of unspecified part of right lower leg with unspecified severity; I50.22 Chronic systolic (congestive) heart failure; G31.84 Mild cognitive impairment of uncertain or unknown etiology; I48.91 Unspecified atrial fibrillation; E78.5 Hyperlipidemia, unspecified; I73.9 Peripheral vascular disease, unspecified; K21.9 Gastro-esophageal reflux disease without esophagitis; J84.10 Pulmonary fibrosis, unspecified; M54.50 Low back pain, unspecified; Z97.8 Presence of other specified devices; K27.9 Peptic ulcer, site unspecified, unspecified as acute or chronic, without hemorrhage or perforation; K44.9 Diaphragmatic hernia without obstruction or gangrene; R73.01 Impaired fasting glucose; I45.10 Unspecified right bundle-branch block; L40.9 Psoriasis, unspecified; N95.0 Postmenopausal bleeding; E83.42 Hypomagnesemia; I35.0 Nonrheumatic aortic (valve) stenosis; I27.20 Pulmonary hypertension, unspecified; M17.12 Unilateral primary osteoarthritis, left knee; Z74.1 Need for assistance with personal care; I87.8 Other specified disorders of veins; Z20.822 Contact with and (suspected) exposure to COVID-19; Z90.79 Acquired absence of other genital organ(s); Z98.41 Cataract extraction status, right eye; Z98.42 Cataract extraction status, left eye; Z87.891 Personal history of nicotine dependence; Z88.0 Allergy status to penicillin; Z99.81 Dependence on supplemental oxygen; Z79.01 Long term (current) use of anticoagulants; Z79.899 Other long term (current) drug therapy

== ENCOUNTER 2021-11-01 16:12 | Inpatient (IN) | payer MEDICARE ==
[~2021-11-01] VITALS: Ht 154.9 cm; Wt 63.8 kg
[~2021-11-01 16:12] MED LIST changes: +ALBU8.5H INH; +AMIO200T49 PO; +ASCO500T PO; +ATOR40TA75 PO; +BISO10TA13 PO; +CALC-234 PO; +CALC600T61 PO; +ELIQ5TAB PO; +LORA-622 PO; +MAGN400T35 PO; +OMEG12004 PO; +PRED10TA2 PO; +TORS20TA2 PO; +VITMTA PO
[2021-11-01] MEDS ORDERED: NS 1,000 ML IV ONE (16:20)
[2021-11-01 16:35] LABS: BASO % 0.2 % (0.0-1.0); EOS # 0.1 10^3/uL (0.0-0.5); EOS % 0.3 % (0.0-3.0); HEMATOCRIT 40.1 % (36.0-47.0); HEMOGLOBIN 12.7 g/dl (12.0-15.5); LYMPH % 11.2 % (24.0-44.0); MEAN CORPUSCULAR HEMOGLOBIN 32.2 pg (27.0-33.0); MEAN CORPUSCULAR HGB CONC 31.7 g/dl (32.0-36.5); MEAN CORPUSCULAR VOLUME 101.5 fl (80.0-96.0); MONO # 0.8 10^3/uL (0.0-0.8); MONO % 4.4 % (2.0-8.0); NEUTROPHILS # 14.4 10^3/uL (1.5-8.5); NEUTROPHILS % 81.5 % (36.0-66.0); PLATELET COUNT, AUTOMATED 352 10^3/uL (150-450); RED BLOOD COUNT 3.95 10^6/uL (4.00-5.40); WHITE BLOOD COUNT 17.7 10^3/uL (4.0-10.0)
[2021-11-01 16:38] LABS: ABG BASE EXCESS 17.7 (-2.0-2.0); ABG HCO3 42.8 MEQ/L (22.0-26.0); ABG O2 SATURATION 99.5 % (95.0-99.0); ABG PARTIAL PRESSURE CO2 51.7 mmHg (35.0-45.0); ABG PARTIAL PRESSURE O2 178.3 mmHg (75.0-100.0); ABG STANDARD HCO3 41.9 MEQ/L (22.0-26.0); ABG TOTAL CO2 44.4 MEQ/L (23.0-31.0); ABG pH (ARTERIAL) 7.536 UNITS (7.350-7.450)
[2021-11-01 16:45] LABS: INR 1.46; PROTHROMBIN TIME 18.2 SECONDS (12.7-14.5)
[2021-11-01 16:46] LABS: PARTIAL THROMBOPLASTIN TIME 25.9 SECONDS (25.9-37.0)
[2021-11-01] MEDS ORDERED: IPRATROPIUM 0.5MG/ALBUTEROL 2.5MG INH SOL UD 3ML (DUONEB) NEB ONE (16:55)
[2021-11-01 17:09] LABS: CK-MB VALUE MASS 1.3 NG/ML (<3.6); MB/CK RELATIVE INDEX 1.55 (< OR =4)
[2021-11-01 17:43] LABS: ALBUMIN 3.2 GM/DL (3.2-5.2); BILIRUBIN,DIRECT 0.2 MG/DL (0.0-0.2); BILIRUBIN,TOTAL 0.5 MG/DL (0.2-1.0); CALCIUM LEVEL 11.5 MG/DL (8.8-10.2); CREATININE FOR GFR 1.56 MG/DL (0.55-1.30); GLOMERULAR FILTRATION RATE 34.2 (>39); POTASSIUM SERUM 3.7 MEQ/L (3.5-5.1); THYROID STIMULATING HORMONE 2.37 uIU/ML (0.358-3.740); TOTAL PROTEIN 6.2 GM/DL (6.4-8.2)
[2021-11-01 18:01] VITALS: BP 112/67
[2021-11-01] MEDS ORDERED: MORPHINE 4 MG/ML 1ML VIAL/SYRINGE (J2270) IV ONE (18:10)
[2021-11-01] MEDS ORDERED: MORPHINE 10MG/0.5ML ORAL CONCENTRATE SOLUTION U/D SL PRN (18:20)
[2021-11-01] MEDS ORDERED: ATROPINE SULFATE 1% OP SOLN 2 ML BTL SL PRN (18:20)
[2021-11-01] MEDS ORDERED: LORazepam 1 MG TAB PO PRN (18:20)
[2021-11-01] MEDS ORDERED: MORPHINE 4 MG/ML 1ML VIAL/SYRINGE (J2270) IV PRN (18:20)
[2021-11-01] MEDS ORDERED: ACETAMINOPHEN TAB 650MG DOSE (2X325MG) PO PRN (18:20)
[2021-11-01] MEDS ORDERED: ONDANSETRON 4 MG ORAL DISINTEGRATING TAB PO PRN (18:20)
[2021-11-01] MEDS ORDERED: SCOPOLAMINE 1MG TRANSDERMAL PATCH TOP PRN (18:20)
[2021-11-01] MEDS ORDERED: ONDANSETRON 4MG/2ML VIAL IV PRN (18:20)
[2021-11-01] MEDS ORDERED: BISACODYL 10 MG SUPP PR PRN (18:20)
[2021-11-01] MEDS ORDERED: HYOSCYAMINE SULFATE 0.125 MG SUBL TABLET PO PRN (18:20)
[2021-11-01] MEDS ORDERED: FLEET ENEMA PR PRN (18:20)
[2021-11-01] MEDS ORDERED: ACETAMINOPHEN 650 MG SUPP PR PRN (18:20)
[2021-11-01] MEDS ORDERED: LORazepam 2 MG/ML VIAL IV PRN (18:20)
[2021-11-01] MEDS ORDERED: HOME MED LIST COMPLETE! XX SCH (18:25)
== END 2021-11-01 21:50 | disposition expired | DRG 951 ==
LOC: M ED 16:12 → M ED INP 18:16 → ENRESERV 19:22 → M MSPAV 19:49
PROVIDERS: ADMIT Family Medicine; ATTEND Family Medicine
PROC: 5A1935Z Respiratory Ventilation, Less than 24 Consecutive Hours (ICD-10-PCS; principal; 2021-11-01)
DX: Z51.5 Encounter for palliative care (principal); J96.21 Acute and chronic respiratory failure with hypoxia; I46.9 Cardiac arrest, cause unspecified; K21.9 Gastro-esophageal reflux disease without esophagitis; Z66 Do not resuscitate; M19.90 Unspecified osteoarthritis, unspecified site; E78.5 Hyperlipidemia, unspecified; J44.9 Chronic obstructive pulmonary disease, unspecified; L40.9 Psoriasis, unspecified; Z20.822 Contact with and (suspected) exposure to COVID-19; Z99.81 Dependence on supplemental oxygen; I73.9 Peripheral vascular disease, unspecified; M54.9 Dorsalgia, unspecified; K27.9 Peptic ulcer, site unspecified, unspecified as acute or chronic, without hemorrhage or perforation; K44.9 Diaphragmatic hernia without obstruction or gangrene; J84.10 Pulmonary fibrosis, unspecified; R73.01 Impaired fasting glucose; I45.10 Unspecified right bundle-branch block; Z90.79 Acquired absence of other genital organ(s); Z98.41 Cataract extraction status, right eye; Z98.42 Cataract extraction status, left eye; Z87.891 Personal history of nicotine dependence